=== PATIENT | male | born 1965 | race African-American/Black ===

== ENCOUNTER 2018-11-24 19:11 | Emergency (ER) | payer MEDICAID ==
[~2018-11-24] VITALS: Ht 180.3 cm; Wt 113.0 kg
[2018-11-24] MEDS ORDERED: SODIUM CHLORIDE 0.9% 1,000 ML IV ONE (19:36)
[2018-11-24] MEDS ORDERED: ONDANSETRON HCL 4MG/2ML INJ IV STA (19:36)
[2018-11-24] MEDS ORDERED: MORPHINE SULFATE 4 MG/ML CPJ (NOT FOR IM USE) IV STA (19:36)
[2018-11-24 20:12] LABS: EOSINOPHILS % 1.3 % (0.0-5.0); HEMATOCRIT. 45.6 % (42.0-52.0); HEMOGLOBIN. 15.5 g/dL (14.0-18.0); MEAN CORPUSCULAR HEMOGLOBIN 29.7 pg (28.0-32.0); MEAN CORPUSCULAR VOLUME 87.2 fL (80.0-94.0); MEAN PLATELET VOLUME 9.5 fl (7.4-10.4); MONOCYTES % 5.7 % (2.0-8.0); PLATELET 335 x1000/uL (130-400); RED BLOOD CELL COUNT 5.23 mill/uL (4.7-6.1)
[2018-11-24 20:15] LABS: CHLORIDE 102 mEq/L (98-107)
[2018-11-24 20:16] LABS: PROTHROMBIN TIME 10.6 sec (9.6-11.0)
[2018-11-24 20:20] LABS: ETHANOL BLOOD < 10 mg/dL
[2018-11-24] MEDS ORDERED: IOHEXOL-300 100 ML BOTTLE ONE (21:01)
[2018-11-24 21:43] LABS: CLARITY URINE CLEAR (CLEAR); COLOR URINE YELLOW (YELLOW); KETONES URINE 2+ (NEGATIVE); LEUKOCYTE ESTERASE URINE NEGATIVE (NEGATIVE); NITRITE URINE NEGATIVE (NEGATIVE); OCCULT BLOOD URINE NEGATIVE (NEGATIVE); PH URINE 7.5 (4.5-8.0); PROTEIN URINE TRACE (NEGATIVE); SPECIFIC GRAVITY URINE 1.045 (1.005-1.030); UROBILINOGEN URINE 0.2 E.U./dL (0.2-1.0)
[2018-11-24 21:53] LABS: *AMPHETAMINES SCREEN URINE NEGATIVE (NEGATIVE); *BARBITURATES SCREEN URINE NEGATIVE (NEGATIVE); *BENZODIAZEPINES SCREEN URINE NEGATIVE (NEGATIVE); *COCAINE SCREEN URINE NEGATIVE (NEGATIVE)
[2018-11-24 21:54] LABS: CANNABINOID URINE SCREEN PRESUMTIVE POSITIVE (NEGATIVE); METHADONE URINE SCREEN NEGATIVE (NEGATIVE); OPIATES URINE SCREEN PRESUMTIVE POSITIVE (NEGATIVE); PHENCYCLIDINE URINE SCREEN NEGATIVE (NEGATIVE)
[2018-11-25 00:05] VITALS: BP 118/60
== END 2018-11-25 00:12 | disposition home or self-care (01) ==
LOC: ER 19:11 → CANBEDREQ 11-25 01:49
DX: R10.84 Generalized abdominal pain (principal); R11.2 Nausea with vomiting, unspecified; R19.7 Diarrhea, unspecified; E11.9 Type 2 diabetes mellitus without complications; I10 Essential (primary) hypertension
CPT/HCPCS: 36415; 71045; 74177; 80053; 80305; 80320; 81003; 83690; 84484; 85025; 85610; 93005; 96361; 96374; 96375; 99284; J2270; J2405; J7030; Q9967; Z7610; G0480

== ENCOUNTER 2023-09-03 13:49 | Emergency (ER) | payer MEDICARE, MEDICAID ==
[~2023-09-03] VITALS: Ht 180.3 cm; Wt 80.0 kg
[2023-09-03 13:53] VITALS: O2SAT 100
[2023-09-03 14:28] LABS: BASOPHILS % 0.9 % (0.0-2.0); EOSINOPHILS % 0.9 % (0.0-5.0); HEMATOCRIT. 44.1 % (42.0-52.0); HEMOGLOBIN. 14.9 g/dL (14.0-18.0); LYMPHOCYTES % 23.7 % (20.0-50.0); MEAN CORPUSCULAR HGB CONC 33.9 g/dL (31.0-37.0); MEAN CORPUSCULAR VOLUME 88.4 fL (80.0-94.0); MEAN PLATELET VOLUME 9.4 fl (7.4-10.4); MONOCYTES % 5.6 % (2.0-8.0); NEUTROPHILS % 68.9 % (40.0-76.0); PLATELET 302 x1000/uL (130-400); RED BLOOD CELL COUNT 4.98 mill/uL (4.7-6.1); RED CELL DISTRIBUTION WIDTH 13.7 % (11.6-14.6); WHITE BLOOD COUNT 9.2 x1000/uL (4.5-11.0)
[2023-09-03 14:44] LABS: ALANINE AMINOTRANSFERASE 24 IU/L (10-49); ALBUMIN 4.5 g/dL (3.2-4.8); ASPARTATE AMINOTRANSFERASE 17 IU/L (<34); BILIRUBIN TOTAL 0.6 mg/dL (0.1-1.0); CALCIUM 9.2 mg/dL (8.7-10.4); CARBON DIOXIDE 24 mEq/L (21-32); CHLORIDE 104 mEq/L (98-107); CREATININE 0.9 mg/dL (0.6-1.3); GLUCOSE 150 mg/dL (70-105); POTASSIUM 3.3 mEq/L (3.5-5.1); PROTEIN TOTAL 7.7 g/dL (6.0-8.3); SODIUM 139 mEq/L (136-145); UREA NITROGEN BLOOD 9 mg/dL (9-23)
[2023-09-03 14:45] LABS: TROPONIN I HIGH SENSITIVITY < 4 ng/L (3.0-53)
[2023-09-03] MEDS: SODIUM CHLORIDE 0.9% 1,000 ML IV ONE (14:48)
[2023-09-03] MEDS: ASPIRIN 325MG EC TABLET PO ONE (15:55)
[2023-09-03 16:13] LABS: TROPONIN I HIGH SENSITIVITY < 4 ng/L (3.0-53)
[2023-09-03 18:18] VITALS: BP 136/68; PULSE 55; RESP 17; TEMP 98.6
== END 2023-09-03 19:07 | disposition left against medical advice (07) ==
LOC: ER 13:49 → EDBEDREQ 18:14 → EDBEDREQTM 18:14 → CANBEDREQ 19:07 → ER 19:07
DX: R55 Syncope and collapse (principal); R00.1 Bradycardia, unspecified; E11.9 Type 2 diabetes mellitus without complications; I10 Essential (primary) hypertension
CPT/HCPCS: 99285; 96360; 70450; 71045; 80053; 82962; 83880; 85025; 84484; 36415; 93005; J7030